=== PATIENT | female | born 1980 | race Caucasian/White ===

== ENCOUNTER 2023-05-11 07:58 | Emergency (ER) | payer OTHER, SELFPAY ==
[2023-05-11 08:01] VITALS: BP 139/94
--- NOTE | 2023-05-11 08:20 | ED.GENMED ---
History of Present Illness
General
Chief Complaint: Flank Pain
Source: patient
Exam Limitations: none
Time Seen by Provider: 05/11/23 08:06
Travel History
Have you had any contact with someone who has COVID-19?: No
Do you have any symptoms of coronavirus? Fever > 100 degrees, chills, cough, shortness of breath, sore throat, loss of taste or smell, muscle aches, or headache?: No
History of Present Illness
History of Present Illness:
42-year-old otherwise healthy female presents complaining of severe left flank pain that started about 7 days ago. Initially was intermittent and now is constant and sharp in nature with occasional nausea. The pain is made worse with breathing.
She denies shortness of breath. No recent travel or surgery. No leg swelling or calf pain. She does not take any hormones. No urinary symptoms. She is currently on her menstrual cycle. No other complaints at this time
Phy Exam
Physical Exam
Physical Exam:
General: Uncomfortable appearing female no acute respiratory distress
HEENT: Normocephalic atraumatic
Heart: Regular rate and rhythm no murmurs
Lungs: Clear no wheeze
Abdomen soft mild left-sided costovertebral angle tenderness no guarding rebound no bowel sounds no right lower quadrant or right upper quadrant tenderness
Extremities: No cyanosis
Skin: Warm no rash
Course
Orders/Labs/Results
Orders:
Orders
05/11/23 08:17
Ketorolac [Toradol] 15 mg IV NOW STA
Test Result ONCE
05/11/23 08:28
Complete Blood Count/With Diff Urgent
Comprehensive Metabolic Panel Urgent
HCG, Serum Qualitative Screen Urgent
Lipase Urgent
05/11/23 08:32
CT Abd/pel Without Iv Or Oral Urgent
Comment:
Reason For Exam: left flank pain
05/11/23 10:37
Urinalysis Reflex To Culture Urgent
Date Specimen was Collected: 05/11/23
Time Specimen was Collected: 10:34
Urine Microscopic Reflex Cult Urgent
05/11/23 10:42
HYDROmorphone [Dilaudid] 0.5 mg IV NOW STA
Abnormal Lab Results
05/11/23 05/11/23
08:28 10:37
Monocytes % 9.5 H %
(1.7-9.3)
Ur Occult Blood Reflex 3+ A
(Negative)
Urine RBC 11-15 A /HPF
(0-2)
Urine Yeast Few A
(Negative)
05/11/23 08:28
05/11/23 08:28
Vital Signs
Initial and Last Documented VS:
Initial Vital Signs
Temp Pulse Resp BP Pulse Ox
98.7 F 86 18 139/94 99
05/11/23 08:01 05/11/23 08:01 05/11/23 08:01 05/11/23 08:01 05/11/23 08:01
Last Documented Vital Signs
Temp Pulse Resp BP Pulse Ox
98.7 F 61 16 117/62 100
05/11/23 08:01 05/11/23 11:00 05/11/23 11:00 05/11/23 11:00 05/11/23 11:00
MDM/Problems Addressed
Differential Diagnosis Includes:
Left flank pain. Consider renal colic. Patient concerned about appendicitis or gallbladder however the pain is left-sided. Exam not consistent with cholecystitis or appendicitis. No risk factors for PE. Will check urine test and labs.
Consider CT scan. Treat symptoms with Toradol
*Critical Care Note
Total Time (30-74mins, 75-104mins- exclusive of procedures): Not Applicable
Update Note
Update Note:
CT scan was ordered which demonstrates 5 and half millimeter stone in the mid left ureter with hydronephrosis. Kidney functions are within normal limits. No infection in the urine. Patient felt better after Toradol initially pain returned some
was given additional dose of Dilaudid. Discussed options between trial of passage at home or admitting for pain control. She prefers to go home and attempt to pass it on her own. Return precautions were given
ED Attending Note
-
Portions of this chart may have been created with voice recognition software.� Occasional wrong word or��sound alike� substitutions may have occurred due to the inherent limitations of voice recognition software.
Discharge Plan
Departure
Patient Disposition: Home (Routine Discharge)
Date of Disposition: 05/11/23
Time of Disposition: 12:01
Patient with high blood pressure during this ER visit?: No
Discharge Problem:
Kidney stone
Instructions: Kidney Stones (DC)
Prescriptions:
New
ibuprofen 600 mg tablet
600 mg PO Q6H PRN (Reason: Pain) Qty: 14 0RF
tamsulosin [Flomax] 0.4 mg capsule
0.4 mg PO DAILY Qty: 14 0RF
ondansetron 4 mg tablet,disintegrating
4 mg PO TID PRN (Reason: nausea and vomiting) Qty: 10 0RF
Referrals:
NONE,* [Family Provider] -
Alexis Kwong MD [Active] -
Stand Alone Forms: Return to Work
Activity Restrictions/Additional Instructions:
Use medicine as directed. Drink plenty fluids. Please return here for increasing pain vomiting or other concerning findings. Follow-up with urology otherwise
Interventions
Interventions:
*Risk Screen - Suicide Last Done: 05/11/23 08:03
*General Assessment Last Done: 05/11/23 08:03
*Neglect/Abuse Screening Last Done: 05/11/23 08:03
ED- Fall Risk Assessment Last Done: 05/11/23 09:39
*ED COVID-19 Vaccine History Last Done: 05/11/23 08:28
PE-Dehnav-Asltekuyzy Assessment Last Done: 05/11/23 09:37
ED-Female Genitourinary Assessment Last Done: 05/11/23 09:37
[2023-05-11] MEDS: TORADOL 15 MG IV ×2 (08:26→12:32)
[2023-05-11 08:28] VITALS: BMI 23.6
[2023-05-11 08:46] LABS: % Basophils 0.7 % (0-2); % Eosinophils 3.5 % (0-6); % Immature Granulocytes 0.5 % (0-0.5); % Lymphocytes 25.7 % (20.5-51.1); % Monocytes 9.5 % (1.7-9.3); % Neutrophils 60.1 % (42.2-75.2); Absolute Eosinophils 0.2 10^3/uL (0-0.7); Absolute Lymphocytes 1.5 10^3/uL (1.2-3.4); Absolute Monocytes 0.6 10^3/uL (0.1-0.6); Absolute Neutrophils 3.5 10^3/uL (1.4-6.5); Hematocrit 38.4 % (37.0-47.0); Hemoglobin 12.9 g/dL (12.0-16.0); Mean Corp Hgb Conc. 33.6 g/dL (33.0-37.0); Mean Corpuscular Volume 83.5 fL (81.0-99.0); Mean Platelet Volume 9.8 fL (7.4-10.4); Nucleated Red Blood Cells % 0 %; Platelet Count 270 10^3/uL (130-400); Red Cell Dist. Width 13.2 % (11.5-14.5); White Blood Cell Count 5.8 10^3/uL (4.8-10.8)
[2023-05-11 08:53] LABS: HCG, Serum Qualitative Screen Negative
[2023-05-11 08:57] LABS: ALT (SGPT) 15 U/L (0-35); AST (SGOT) 17 U/L (14-36); Albumin 4.1 g/dl (3.5-5.0); Alkaline Phosphatase 68 U/L (38-126); Blood Urea Nitrogen 13 mg/dl (7-17); Calcium 9.2 mg/dl (8.4-10.2); Carbon Dioxide 25 mmol/L (22-30); Chloride 105 mmol/L (98-107); Estimated Creatinine Clearance 78 ml/min; Glucose 94 mg/dl (70-99); Potassium 3.9 mmol/L (3.5-5.1); Sodium 138 mmol/L (135-145); Total Bilirubin 0.4 mg/dl (0.2-1.3); eGFR > 60.00
[2023-05-11 09:23] LABS: Lipase 94 U/L (23-300)
[2023-05-11 09:31] VITALS: BP 115/71
[2023-05-11 10:54] LABS: Urine Albumin Negative (Neg - Trace); Urine Bilirubin Negative (Negative); Urine Character Clear (Clear); Urine Color Yellow; Urine Glucose Negative (Negative); Urine Ketone Negative (Negative); Urine Leukocyte Negative (Negative); Urine Nitrite Negative (Negative); Urine Occult Blood 3+ (Negative); Urine Urobilinogen Negative (Neg - 1+)
[2023-05-11 11:00] VITALS: BP 117/62
[2023-05-11] MEDS: DILAUDID 0.5 MG IV (11:02)
[2023-05-11 11:25] LABS: Urine White Cell 0-2 /HPF (0-5)
[2023-05-11 11:26] LABS: Urine Yeast Few (Negative)
[2023-05-11 12:00] VITALS: BP 116/70
== END 2023-05-11 12:57 | disposition home or self-care (01) ==
LOC: EMR 07:58
PROVIDERS: Physician Assistant; EMERGENCY PHYSICIAN Emergency Medicine
DX: N13.2 Hydronephrosis with renal and ureteral calculous obstruction (principal)
CPT/HCPCS: 99284; 96374; 96375; 96376; 74176; 80053; 81003; 81015; 83690; 84703; 85025

== ENCOUNTER 2023-05-23 04:03 | Inpatient (IN) | payer OTHER, SELFPAY ==
[2023-05-23] VITALS (10 sets, daily range): BP systolic 97–132; BP diastolic 59–102; BMI 26.6; BMI 24.8
--- NOTE | 2023-05-23 01:39 | ED.GENMED ---
History of Present Illness
General
Chief Complaint: Flank Pain
Source: patient
Exam Limitations: none
Time Seen by Provider: 05/23/23 01:29
Travel History
Have you had any contact with someone who has COVID-19?: No
Do you have any symptoms of coronavirus? Fever > 100 degrees, chills, cough, shortness of breath, sore throat, loss of taste or smell, muscle aches, or headache?: No
History of Present Illness
History of Present Illness:
This is a 42 year old female that comes in with c/o left flank pain. States that she was here 2 weeks ago and told that she had a kidney Stone. States that she stared with pain about 4 weeks ago and it kept getting worse. States that yesterday she
drank a lot of fluid. States that she had been using Ibuprofen after she was seen here for pain. States that yesterday the pain was terrible. States that she took Aleve 4 tablets around 4pm. States that her urine has decreased. States that she has
slight nausea. Denies any fever, chills, vomiting, diarrhea, abd pain, headache, dizziness, urinary burning.
Past History
Past History
ED Past Medical History: Other (Renal calculus); Negative Asthma, HTN, Hypercholesterolemia or NIDDM
ED Past Surgical History: None
Social History
Tobacco: Non-smoker
Alcohol: None
Personal:
Living: with family
Review of Systems
Review of Systems
All Other Systems: ROS reviewed and negative except as documented in HPI and ROS
Constitutional: Reports no symptoms; Denies fever or chills
EENT: Reports no symptoms
Respiratory: Reports no symptoms; Denies cough or trouble breathing
Cardiac: Reports no symptoms; Denies chest pain
ABD/GI: Reports nausea; Denies abdominal pain, vomiting or diarrhea
: Reports flank pain (Left flank) and other (Decreased urine output); Denies dysuria
Musculoskeletal: Reports no symptoms
Skin: Reports no symptoms
Neurological: Reports no symptoms; Denies dizzy or headache
Psychiatric: Reports no symptoms
Phy Exam
General Physical Exam
General Presentation: mild distress
General age: appears stated age
General Skin: warm and dry
General Habitus: normal
General Mental: alert
General Hydration: appears well hydrated
ENT Exam
ENT Exam: TM's normal, pharynx normal and neck supple
Eye Exam
Eye Exam: EOMI
Cardiovascular Exam
Cardiovascular Exam: regular rate/rhythm, no edema, no murmur and normal peripheral pulses
Pulmonary Exam
Pulmonary Exam: lungs clear, no respiratory distress, no rales, chest non tender, no crackles, no rhonchi, no wheezing and no cough
Gastrointestinal Exam
Gastrointestinal Exam: normal bowel sounds, non tender, soft, no organomegaly, no pulsatile mass, non distended and cva tenderness (Left sided)
Musculoskeletal Exam
Musculoskeletal Exam: full ROM and no edema
Skin Exam
Skin Exam: normal color, warm/dry, no rash and no petechia
Psychiatric Exam
Psychiatric Exam: normal mood/affect
Course
Orders/Labs/Results
Orders:
Orders
05/23/23 01:30
CT Abd/pel Without Iv Or Oral Urgent
Comment:
Reason For Exam: left flank pain
0.9% Sodium Chloride 500 ml [Nss] 500 ml IV BOLUS
Ketorolac [Toradol] 15 mg IV NOW STA
Test Result ONCE
05/23/23 01:53
Complete Blood Count/With Diff Urgent
Comprehensive Metabolic Panel Urgent
HCG, Serum Qualitative Screen Urgent
05/23/23 02:40
Urinalysis Reflex To Culture Urgent
Date Specimen was Collected: 05/23/23
Time Specimen was Collected: 02:39
05/23/23 02:44
HYDROmorphone [Dilaudid] 0.5 mg IV NOW STA
Ondansetron Injectable [Zofran] 4 mg IV NOW STA
Abnormal Lab Results
05/23/23
01:53
WBC 10.9 H 10^3/uL
(4.8-10.8)
Hct 36.0 L %
(37.0-47.0)
Abs Immat Gran (auto) 0.1 H 10^3/uL
(0-0.05)
Absolute Neuts (auto) 7.3 H 10^3/uL
(1.4-6.5)
Absolute Monos (auto) 0.9 H 10^3/uL
(0.1-0.6)
Immature Gran % 0.6 H %
(0-0.5)
BUN 28 H mg/dl
(7-17)
Glucose 107 H mg/dl
(70-99)
05/23/23 01:53
05/23/23 01:53
Dehydration. Glucose nonfasting. HCG negative.
Vital Signs
Initial and Last Documented VS:
Initial Vital Signs
Temp Pulse Resp BP Pulse Ox
97.6 F 89 14 124/85 98
05/23/23 01:26 05/23/23 01:26 05/23/23 01:26 05/23/23 01:26 05/23/23 01:26
Last Documented Vital Signs
Temp Pulse Resp BP Pulse Ox
97.6 F 89 14 127/91 99
05/23/23 01:26 05/23/23 01:26 05/23/23 01:26 05/23/23 02:00 05/23/23 02:15
MDM/Problems Addressed
Differential Diagnosis Includes:
Renal calculus, UTI,
MDM/Problems Addressed:
This is a 42 year old female that comes in with c/o left flank pain. States that she has a kidney stone and was here 2 weeks ago. States that she started with terrible pain today and her urine output has decreased.
Will get labs. Urine and CT Scan. Will also given IV fluids and pain medication.
back into see patient. Explained that her stone appears to have moved some but that it may be best to admit patient and have Urology see in the morning. Patient is in agreement. Message sent to Dr. Reyez. If is in agreement with have [facility] TABLE MACHINE OPERATOR admit
to his service.
Dr. Reyez would like patient kept NPO and he will place stent or removed in morning. Patient to go to [address] [place] [address] is possible as will be urology/postop. [place] TABLE MACHINE OPERATOR notified and they will admit
Chronic conditions affecting care:
History of Renal calculus
Acute Exacerbation and/or Progression of Chronic Illness:
Renal calculus
*Radiology
Radiology exam reviewed: radiology read reviewed (CT night hawk- persistent 4X6mm obstructing left ureteral stone, now migratedto the level of the distal ureter, several centimeters above the bladder (previously in the proximal ureter). Persistent
moderate hydroureteronephrosis, slightly increased as compared to prior. One additional punctate ) and other (CT cont- nonobstructing left lower pole renal stone. No perinephric stranding or fluid. Stool-filled colon and rectum. )
*Pulse Oximetry
Patient hypoxic: no
*EKG
Interpreted by ED Provider?: NA
Rate: EKG- N/A
*Land Checker Interpretation
Rate: Land Checker- N/A
*Critical Care Note
Total Time (30-74mins, 75-104mins- exclusive of procedures): Not Applicable
ED Attending Note
-
Portions of this chart may have been created with voice recognition software.� Occasional wrong word or��sound alike� substitutions may have occurred due to the inherent limitations of voice recognition software.
Discharge Plan
Departure
Patient Disposition: Admit
Date of Disposition: 05/23/23
Time of Disposition: 03:23
Admit to: Med/Surg
Presentation/result/management discussed w/ accepting MD/DO: Dr. Reyez
Patient with high blood pressure during this ER visit?: Yes
Condition: Good
Covid-19: Not Applicable
Discharge Problem:
Renal calculus, left
Prescriptions:
No Action
ibuprofen 600 mg tablet
600 mg PO Q6H PRN (Reason: Pain) Qty: 14 0RF
tamsulosin [Flomax] 0.4 mg capsule
0.4 mg PO DAILY Qty: 14 0RF
ondansetron 4 mg tablet,disintegrating
4 mg PO TID PRN (Reason: nausea and vomiting) Qty: 10 0RF
Referrals:
NONE,* [Family Provider] -
Interventions
Interventions:
*Risk Screen - Suicide Last Done: 05/23/23 01:26
*General Assessment Last Done: 05/23/23 01:26
*Neglect/Abuse Screening Last Done: 05/23/23 01:26
*ED COVID-19 Vaccine History Last Done: 05/23/23 02:04
FH-Wclcvi-Cdenlvamng Assessment Last Done: 05/23/23 02:04
ED-Female Genitourinary Assessment Last Done: 05/23/23 02:14
Discharge Date and Time
Print Language: BELIZEAN
[2023-05-23 01:59] LABS: % Basophils 0.6 % (0-2); % Eosinophils 2.3 % (0-6); % Immature Granulocytes 0.6 % (0-0.5); % Lymphocytes 21.3 % (20.5-51.1); % Monocytes 8.6 % (1.7-9.3); % Neutrophils 66.6 % (42.2-75.2); Absolute Basophils 0.1 10^3/uL (0-0.2); Absolute Eosinophils 0.3 10^3/uL (0-0.7); Absolute Immature Granulocytes 0.1 10^3/uL (0-0.05); Absolute Lymphocytes 2.3 10^3/uL (1.2-3.4); Absolute Monocytes 0.9 10^3/uL (0.1-0.6); Absolute Neutrophils 7.3 10^3/uL (1.4-6.5); Hemoglobin 12.3 g/dL (12.0-16.0); Mean Corp Hgb Conc. 34.2 g/dL (33.0-37.0); Mean Corpuscular Hgb 28.1 pg (27.0-31.0); Mean Corpuscular Volume 82.2 fL (81.0-99.0); Mean Platelet Volume 9.6 fL (7.4-10.4); Nucleated Red Blood Cells % 0 %; Platelet Count 266 10^3/uL (130-400); Red Blood Cell Count 4.38 10^6/uL (4.20-5.40); Red Cell Dist. Width 13.7 % (11.5-14.5); White Blood Cell Count 10.9 10^3/uL (4.8-10.8)
[2023-05-23] MEDS: NSS 500 IV (01:59)
[2023-05-23] MEDS: TORADOL 15 MG IV (01:59)
[2023-05-23 02:13] LABS: HCG, Serum Qualitative Screen Negative
[2023-05-23 02:14] LABS: ALT (SGPT) 14 U/L (0-35); AST (SGOT) 18 U/L (14-36); Albumin 3.8 g/dl (3.5-5.0); Alkaline Phosphatase 76 U/L (38-126); Blood Urea Nitrogen 28 mg/dl (7-17); Calcium 10.2 mg/dl (8.4-10.2); Carbon Dioxide 27 mmol/L (22-30); Chloride 103 mmol/L (98-107); Estimated Creatinine Clearance 66 ml/min; Glucose 107 mg/dl (70-99); Potassium 3.8 mmol/L (3.5-5.1); Sodium 138 mmol/L (135-145); Total Bilirubin 0.3 mg/dl (0.2-1.3); Total Protein 6.6 g/dl (6.3-8.2); eGFR > 60.00
[2023-05-23] MEDS: ZOFRAN 4 MG IV (02:50)
[2023-05-23] MEDS: DILAUDID 0.5 MG IV (02:51)
[2023-05-23 03:21] LABS: Urine Albumin Negative (Neg - Trace); Urine Bilirubin Negative (Negative); Urine Character Clear (Clear); Urine Color Yellow; Urine Glucose Negative (Negative); Urine Ketone Negative (Negative); Urine Leukocyte Negative (Negative); Urine Nitrite Negative (Negative); Urine Occult Blood 1+ (Negative); Urine Urobilinogen Negative (Neg - 1+); Urine pH 6.5 (5.0-9.0)
[2023-05-23 03:52] LABS: Urine Bacteria Moderate (Negative); Urine White Cell 0-2 /HPF (0-5)
--- NOTE | 2023-05-23 04:02 | HPS.HSE ---
Family Physician
-
Family Physician: * NONE
Chief Complaint
-
'left flank pain '
History of Present Illness
42 y/o patient presents to ER with c/o diffuse abdomen pain. States she was here two weeks ago and was send home for home interventions for kidney stones. States she started intense pain at the left flank which radiated across her abdomen. She was
drinking lots of water and noticed she was unable to urinate. She was having 'pressure' pain throughout her abdomen dominated mostly at left flank. Pain was unrelieved with 4 tablets of Ibuprofen. Stated nausea, but denied chills or fever or
hematuria. Denies any chest pain or Shortness of breath, states she has history of Kidney stones and 'inflammation of left Kidney'. No surgical history.
Medical History
Past Medical History
Past Medical History: Reports Other (kidney stones, inflammation of left kidney)
Additional Past Medical History:
kidney stones 2016
'inflammation' of the left kidney 2021
Past Surgical History: Reports None
Social History
Unable to obtain full social history at this time due to: Dementia
Tobacco: Non-smoker
Alcohol: None
Drug: None
Family History
Family History: Not pertinent
Allergies / Home Medications
Allergies reflects when Allergies were last updated in [facility].
Home Medications with original date entered in [facility]
Allergy/Medication List:
Allergies
Allergy/AdvReac Type Severity Reaction Status Date / Time
No Known Allergies Allergy Unverified 05/11/23 08:01
Home Medications
ibuprofen 600 mg tablet 600 mg PO Q6H PRN Pain #14 tabs 05/11/23
ondansetron 4 mg disintegrating tablet 4 mg PO TID PRN nausea and vomiting #10 tabs 05/11/23
tamsulosin 0.4 mg capsule (Flomax) 0.4 mg PO DAILY #14 caps 05/11/23
Review of Systems
-
History Source: Patient
A 12 point ROS was completed and negative except as noted: Yes
Constitutional: Reports No Symptoms
EENT: Reports No Symptoms
Respiratory: Reports No Symptoms
Cardiac: Reports No Symptoms
Abdomen/GI: Reports No Symptoms
: Reports Flank Pain
Musculoskeletal: Reports No Symptoms
Skin: Reports No Symptoms
Neurological: Reports No Symptoms
Endocrine: Reports No Symptoms
Hematologic/Lymphatic: Reports No Symptoms
Psych: Reports No Symptoms
Physical Exam
Vital Signs
Vital Signs
Temp Pulse Resp BP Pulse Ox
97.6 F 89 14 127/91 99
05/23/23 01:26 05/23/23 01:26 05/23/23 01:26 05/23/23 02:00 05/23/23 02:15
Physical Exam
General: Well Developed, Well Nourished and No Apparent Distress
HEENT: NormoCephalic, Moist mucous membranes and Atraumatic
Respiratory: Clear and Non Labored Respirations
Cardiac: S1/S2 and Regular Rhythm
GI: Soft, Non Tender, Non Distended and Normal Bowel Sounds
Rectal: Deferred by Provider
Genito-urinary: Costovertebral angle tend
Musculoskeletal: No Clubbing, No Cyanosis and No Edema
Skin: Warm, Dry and Rash
Neuro: Awake, Oriented, AO x 3 and Nonfocal/grossly intact
Hematologic/Lymphatic: No Lymphadenopathy
Psych: Calm and Intact Judgment/Insight
Laboratory Results
-
05/23/23 01:53
05/23/23 01:53
Laboratory Results
Total Bilirubin 0.3 mg/dl (0.2-1.3) 05/23/23 01:53
AST 18 U/L (14-36) 05/23/23 01:53
ALT 14 U/L (0-35) 05/23/23 01:53
Alkaline Phosphatase 76 U/L (38-126) 05/23/23 01:53
Data Reviewed
-
CT Scan: Report Reviewed by me
Lab Data: Labs Reviewed by me
Impression/Plan
-
42y/o with the complain of left flank pain
# Left flank pain likely due to Left Renal Calculus
-Admit under Dr. Reyez
-NPO
-Continue IV fluids
-Continue IV Antiemetics
-Continue IV Analgesics
-Continue Flomax
-strain urine
-Bladder scan if no void in 6 hours
DVT prophylaxis: SCD's
Full Code
--- NOTE | 2023-05-23 05:10 | PTCARENOTE ---
Patient arrived from ED at 05:09, weight obtained on balanced standing scale, admission history obtained from patient with in room; patient AAOx3, (L) flank pain level '2'/pressure and patient stated pain is acceptable at this time; patient
NPO for surgery this a.m., strainer placed in bathroom to strain all urine, 1st set of CHG wipes completed at bedside, patient NPO, IVF infusing; will give detailed report to dayshift RN.
[2023-05-23] MEDS: NSS 1000 IV (06:04)
[2023-05-23 07:03] LABS: Hematocrit 33.7 % (37.0-47.0); Hemoglobin 10.9 g/dL (12.0-16.0); Mean Corp Hgb Conc. 32.3 g/dL (33.0-37.0); Mean Corpuscular Hgb 27.7 pg (27.0-31.0); Mean Corpuscular Volume 85.5 fL (81.0-99.0); Mean Platelet Volume 9.5 fL (7.4-10.4); Platelet Count 199 10^3/uL (130-400); Red Blood Cell Count 3.94 10^6/uL (4.20-5.40); Red Cell Dist. Width 13.9 % (11.5-14.5); White Blood Cell Count 8.2 10^3/uL (4.8-10.8)
[2023-05-23 07:27] LABS: Blood Urea Nitrogen 30 mg/dl (7-17); Calcium 9.1 mg/dl (8.4-10.2); Carbon Dioxide 24 mmol/L (22-30); Chloride 104 mmol/L (98-107); Estimated Creatinine Clearance 50 ml/min; Glucose 98 mg/dl (70-99); Potassium 3.8 mmol/L (3.5-5.1); Sodium 133 mmol/L (135-145); eGFR > 60.00
--- NOTE | 2023-05-23 08:40 | HP.FOC2 ---
Focused History & Physical
Chief Complaint
HPI:
Chief Complaint: intractable left renal colic
HPI / Indication for Planned Procedure:
42F presenting with intractable and persistent left flank pain.
Seen in ER on 05/11/23 for similar symptoms - CTAP w/o IV contrast demonstrated 5.5 mm obstructing proximal left ureteral stone w/ moderate hydro.
Pain started initially 4 weeks ago.
Taking ibuprofen after last ER visit, but pain noted as 'terrible.'.
Took 4 Aleve tablet yesterday afternoon - noted nausea.
Denies F/C.
Denies dysuria.
Relevant Social History: Negative
Relevant Family History: Negative
Relevant Past Surgical History: Negative
Review of Systems
Review of Pertinent Systems: All Systems Negative Except for the Following Positives (left flank and abdominal pain)
Medication
See Medication form for detailed medications: Yes
Medication List (including Herbals & OTC):
ibuprofen 600 mg tablet 600 mg PO Q6H PRN Pain #14 tabs 05/11/23
ondansetron 4 mg disintegrating tablet 4 mg PO TID PRN nausea and vomiting #10 tabs 05/11/23
tamsulosin 0.4 mg capsule (Flomax) 0.4 mg PO DAILY #14 caps 05/11/23
Medications Reviewed: Yes
Allergies and Reactions
Patient has Allergies: No
Noted Allergies and Reactions:
Allergy/AdvReac Type Severity Reaction Status Date / Time
No Known Allergies Allergy Unverified 05/11/23 08:01
Pertinent Physical Exam
All Other Systems: Negative
Head/Neck: Normal
Lungs: Normal
Heart: Normal
Abdomen: Normal
Extremities: Normal
Neurological: Normal
Diagnosis / Assessment
Intractable left renal colic
Obstructing distal left ureteral stone w/ hydronephrosis
Plan / Procedure
- Admitted for pain control (Urology)
- NPO
- Plan for OR today for LEFT URS/LL/stone extraction/stent placement (vs. stent placement only)
- IV Ancef 2g honey processor to OR
Reviewed risks, benefits, alternatives, and potential complications of URS/LL/stone extraction/stent placement including but not limited to urosepsis, bleeding, ureteral/bladder injury, need for additional procedures.
Discussed urologic plan of care w/ patient this morning.
D/w ER o/n.
Anesthesia/Sedation to be done by Anesthesia Provider: Yes
[2023-05-23] MEDS: FLOMAX 0.400000000000000022 MG PO (10:15)
[2023-05-23] MEDS: TYLENOL 650 MG PO (10:29)
--- NOTE | 2023-05-23 13:13 | W.DS.TRANS ---
DC Summary - Public Policy Analyst
-
Discharge Instructions:
Discharge Diagnosis/Procedures left ureteral stone s/p ureteroscopy/stone
extraction
Diet Regular
Activity No restrictions
Driving Restrictions No driving for 24 hours
Bathing Restrictions None
Instructions:
Stand-Alone Forms:
Changes to Home Medications: No
Discharge Medications:
DC Medications w/original date entered in [place]
ibuprofen 600 mg tablet 600 mg PO Q6H PRN Pain #14 tabs 05/11/23
Home Medication Changes
Pending Results: No
[2023-05-23] MEDS: Pyridium 200 MG PO (14:58)
[2023-05-23] MEDS: DETROL LA 4 MG PO (14:58)
--- NOTE | 2023-05-23 15:04 | PTCARENOTE ---
1500: return from left ureteral stone removal laser lithotripsy was successful. No stent. pt c/o cramping only mild discomfort placed warm blanket. Lunch was ordered, but currently not eating. bed low, call alexander in reach. Bipin in room.
--- NOTE | 2023-05-23 15:39 | CM ---
Met with patient and spouse at bedside; initial assessment completed
s/p left ureteroscopy with stone extraction
Ph[facility] verified: [facility] [place]
Does not know the name of the PCP that was assigned by her insurance
Patient reported that she and her live in a townhouse; 1 step to enter; 12 steps between floors; powder room on the 1st floor; 2nd floor bath has a stall shower
PLOF: patient reported she is independent with ambulation, steps, and ADLs; Drives
DME: none
SNF/Rehab/Home Care utilization history: none
Transportation: will provide ride home
Plan: discharge to home when medically stable later today
[2023-05-23] MEDS: TORADOL 10 MG IV (16:52)
[2023-05-27 23:37] LABS: Stone Analysis Mass 39 mg
== END 2023-05-23 17:26 | disposition home or self-care (01) | DRG 694 ==
LOC: 2 SOUTH 04:03
PROVIDERS: Nurse Practitioner Gerontology; ADMITTING PHYSICIAN Surgery; EMERGENCY PHYSICIAN Emergency Medicine
PROC: 0TC78ZZ Extirpation of Matter from Left Ureter, Via Natural or Artificial Opening Endoscopic (ICD-10-PCS; 2023-05-23)
DX: N13.2 Hydronephrosis with renal and ureteral calculous obstruction (principal); E86.0 Dehydration; Z87.442 Personal history of urinary calculi
CPT/HCPCS: 74018; 74176; 76000; 80048; 80053; 81003; 81015; 82365; 84703; 85025; 85027; 87086; 96361; 96374; 96375; 99284; C1769